=== PATIENT | male | born 1995 | race Caucasian/White ===

== ENCOUNTER 2019-01-24 14:26 | Emergency (ER) | payer MEDICAID, OTHER ==
[2019-01-24] MEDS: HYDROCODONE/APAP (5/325) TAB PO (15:24)
[2019-01-24] MEDS: ONDANSETRON (ODT) 4 MG TAB ODT (15:24)
== END 2019-01-24 16:34 | disposition home or self-care (01) ==
LOC: E/R 14:26 → FTE 16:34
DX: S62.314A Displaced fracture of base of fourth metacarpal bone, right hand, initial encounter for closed fracture (principal); S62.141A Displaced fracture of body of hamate [unciform] bone, right wrist, initial encounter for closed fracture; W22.8XXA Striking against or struck by other objects, initial encounter; Y92.9 Unspecified place or not applicable
CPT/HCPCS: 29125; 73110-RT; 73130-RT; 99283-25